=== PATIENT | female | born 1980 | race Caucasian/White ===

== ENCOUNTER 2020-03-14 09:35 | Outpatient (CLI) | payer OTHER, SELFPAY ==
--- NOTE | 2020-03-14 | ECG_ITS ---
Measurements Intervals [place] Rate: 59 P: -4 ID: [id number] QRS: 81 QRSD: 86 T: 75 QT: 414 QTc: 410 Interpretive Statements SINUS BRADYCARDIA BORDERLINE ECG Electronically Signed On 03-14-2020 9:52:13 CDT by David Liang D.O.
--- NOTE | 2020-03-14 | EST_ITS ---
Patient Info Name: Anabella Wright Age: 39 years : 1980 Gender: Female Ht: 69 in Wt: 170 lbs BSA: 1.95 m2 Exam Date: 03/14/2020 9:45 AM Exam Location: [facility] Stress Patient Status: Outpatient Admit Date: 03/14/2020 Staff Ordering Physician: Izabella, Karen MIJARES Attending Provider: PHYSICIAN NOT ON STAFF, NONSTAFF Exercise Technologist: Sparkle Harris RDCS Exam Type: CA stress test treadmill Study Info Indications R07.9 - Chest pain, unspecified A treadmill exercise stress test was performed. Summary 1. Exercise capacity very good at >10 METS. 2. No diagnostic ST segment response to stress. 3. Patient did develop sharp left-sided pain that worsened with inspiration that stopped at 4 minutes in recovery. No associated symptoms. Protocol: [facility]ata Stress ECG Details Stage: REST Duration (min): 10 min : 12 sec Speed (mph): 0.0 Grade (%): 0 HR (bpm): 60 SBP (mmHg): 126 DBP (mmHg): 72 METS: --- Stage: REST Duration (min): 21 min : 15 sec Speed (mph): 0.0 Grade (%): 0 HR (bpm): 69 SBP (mmHg): 126 DBP (mmHg): 72 METS: --- Stage: STAGE 1 Duration (min): 1 min : 0 sec Speed (mph): 1.7 Grade (%): 10 HR (bpm): 81 SBP (mmHg): 126 DBP (mmHg): 72 METS: --- Stage: STAGE 1 Duration (min): 2 min : 0 sec Speed (mph): 1.7 Grade (%): 10 HR (bpm): 89 SBP (mmHg): 126 DBP (mmHg): 72 METS: --- Stage: STAGE 1 Duration (min): 3 min : 0 sec Speed (mph): 1.7 Grade (%): 10 HR (bpm): 86 SBP (mmHg): 142 DBP (mmHg): 63 METS: --- Stage: STAGE 2 Duration (min): 1 min : 0 sec Speed (mph): 2.5 Grade (%): 12 HR (bpm): 92 SBP (mmHg): 142 DBP (mmHg): 63 METS: --- Stage: STAGE 2 Duration (min): 2 min : 0 sec Speed (mph): 2.5 Grade (%): 12 HR (bpm): 99 SBP (mmHg): 151 DBP (mmHg): 65 METS: --- Stage: STAGE 2 Duration (min): 3 min : 0 sec Speed (mph): 2.5 Grade (%): 12 HR (bpm): 103 SBP (mmHg): 151 DBP (mmHg): 65 METS: --- Stage: STAGE 3 Duration (min): 1 min : 0 sec Speed (mph): 3.4 Grade (%): 14 HR (bpm): 117 SBP (mmHg): 144 DBP (mmHg): 68 METS: --- Stage: STAGE 3 Duration (min): 2 min : 0 sec Speed (mph): 3.4 Grade (%): 14 HR (bpm): 134 SBP (mmHg): 144 DBP (mmHg): 68 METS: --- Stage: STAGE 3 Duration (min): 3 min : 0 sec Speed (mph): 3.4 Grade (%): 14 HR (bpm): --- SBP (mmHg): 163 DBP (mmHg): 67 METS: --- Stage: STAGE 4 Duration (min): 1 min : 0 sec Speed (mph): 4.2 Grade (%): 16 HR (bpm): 155 SBP (mmHg): 163 DBP (mmHg): 67 METS: --- Stage: STAGE 4 Duration (min): 1 min : 32 sec Speed (mph): 4.2 Grade (%): 16 HR (bpm): 159 SBP (mmHg): 170 DBP (mmHg): 76 METS: ---
== END 2020-03-14 09:36 | disposition home or self-care (01) ==
LOC: ANHCARD 09:36
PROVIDERS: Visit Provider Physician Assistant
DX: R07.9 Chest pain, unspecified (principal)
CPT/HCPCS: 93005; 93017

== ENCOUNTER 2020-07-05 13:21 | Emergency (ER) | payer OTHER, SELFPAY ==
[2020-07-05] VITALS (25 sets, daily range): BP systolic 104–130; BP diastolic 63–89; PULSE 69; RESP 24; TEMP 36.9; O2SAT 83–100
--- NOTE | ~2020-07-05 | CT_ITS ---
EXAMINATION: CT abdomen pelvis w con EXAM DATE: 07/05/2020 15:10 INDICATION: Right upper quadrant pain. TECHNIQUE: Spiral CT of the abdomen and pelvis was performed following intravenous injection of 100 m L Omnipaque 350. Axial, coronal and sagittal images were reviewed. The dose-length product (DLP) fo r this examination was 409.96 mGy-cm. The exposure was tailored according to patient size (auto mA e xposure control), and iterative reconstruction (ASIR) was used as additional dose reduction technique . Comparison is made to prior examination from 03/01/2008. FINDINGS: The liver, spleen, adrenal glands and pancreas are unremarkable. There are cholecystectomy clips. Portal and splenic veins are patent. Kidneys enhance symmetrically. There is no hydronephr osis. Uterus is retroverted. There is fundal hypoechoic region which could be fluid pocket measurin g 1 x 2 cm. There is right-sided hydrosalpinx, mildly dilated fluid-filled fallopian tube. The bladd er is unremarkable. There is no retroperitoneal or pelvic lymphadenopathy. The appendix is normal. The stomach and small bowel are unremarkable. There is expected amount of c olonic stool. No free intraperitoneal gas. The heart is normal in size. There are no pericardial or pleural effusions. The lung bases are unremarkable. There are no osteoblastic or osteolytic les ions identified. Mild lumbar dextroscoliosis. IMPRESSION: Right hydrosalpinx and possible small endometrial canal fluid pocket. Can't exclude pelvi c inflammatory disease. Consider sonogram if indicated clinically. Reviewed, dictated and finalized at location B. WINDER IMPRESSION: Right hydrosalpinx and possible small endometrial canal fluid pocke t. Can't exclude pelvic inflammatory disease. Consider sonogram if indicated cl inically.
--- NOTE | ~2020-07-05 | US_ITS ---
EXAMINATION: US pelvic complete w TV DATE: 07/05/2020 17:17 INDICATION: Hydrosalpinx seen on CT examination. Comparison:CT dated 07/05/2020 TECHNIQUE: Multiple transabdominal and endovaginal sonographic images of the pelvis performed. FINDINGS: The uterus measures 8.7 x 5.6 x 4.5 cm. There is fluid in the endometrium. The endometrial complex measures 16 mm. The right ovary is surgically absent. No right adnexal masses or fluid collections to correspond to t he tubular structure seen on CT. Per clinical history the patient's right ovary and fallopian tube ar e surgically absent. There is a complex left adnexal mass measuring up to 3.5 cm, possibly hemorrhagi c ovarian cyst. There is no free fluid in the pelvis. There are no abnormal masses seen on either si de. IMPRESSION: 1. Thickened endometrium measuring 16 mm with associated complex fluid in the endometrium, nonspecifi c. 2: Complicated cystic left adnexal mass measuring up to 3.5 cm, possibly hemorrhagic cyst. 3: No right adnexal masses are identified to correspond to the CT findings. Reviewed, dictated and finalized at location A. OR PHYSICIAN IMPRESSION: 1. Thickened endometrium measuring 16 mm with associated complex fluid in the e ndometrium, nonspecific. 2: Complicated cystic left adnexal mass measuring up to 3.5 cm, possibly hemorr hagic cyst. 3: No right adnexal masses are identified to correspond to the CT findings.
--- NOTE | 2020-07-05 13:40 | ED.ABDPAIN ---
HPI - Abdominal Pain General Chief Complaint: Abdominal Pain Stated Complaint: abd pain from express care Time Seen by Provider: 07/05/20 13:39 Source: patient Mode of arrival: ambulatory Limitations: no limitations History of Present Illness HPI narrative: 39 years old white female presents with sudden onset of right lower quadrant pain radiating to right flank area started 2 to 3 hours prior to arrival to the emergency room associated with nausea and vomiting. Patient denying having similar symptoms, fever, chills, chest pain, shortness of breath or headache. History of uterine ablation and excision of the fallopian tubes bilaterally. Related Data Allergies Allergy/AdvReac Type Severity Reaction Status Date / Time No Known Allergies Allergy Verified 06/02/17 10:29 Review of Systems Review of Systems: Narrative: CONSTITUTIONAL: Denies fever, chills, or sweats. EYES: Denies visual changes, redness, or discharge. ENT: Denies rhinorrhea, congestion, sore throat, or otalgia. CARDIOVASCULAR: Denies chest pain, palpitations, or edema. RESPIRATORY: Denies cough or dyspnea. GASTROINTESTINAL: Denies abdominal pain, nausea, vomiting, or diarrhea. GENITOURINARY: Denies dysuria or hematuria. SKIN: Denies rash or itching. MUSCULOSKELETAL: Denies back pain, joint pain, or myalgia. NEUROLOGIC: Denies headache, numbness, or weakness. PSYCHIATRIC: Denies anxiety or depression. [facility] Family History Family History (Updated 12/10/18 @ 14:08 by DOCTOR UNKNOWN) Mother Patient's mother is in good health Father Patient's father is in good health Social History Social History Smoking status: Heavy tobacco smoker Alcohol intake: current Exam Narrative: Exam Narrative: General appearance: Well-developed, well-nourished Skin: Normal color Head: Normocephalic, nontraumatic Chest and respiratory: Airway patent, no respiratory distress, no accessory muscle use Heart: Regular rate/rhythm Abdomen: Soft, severe tenderness right lower quadrant and right flank, no organomegaly, quiet bowel sounds Vascular: Normal peripheral pulses, normal capillary refill. Musculoskeletal: Normal range of motion, nontender back Neurologic: Alert and oriented ?3, FOLDER INSPECTOR is normal as tested, no gross motor deficit Course Course Emergency Course: Improving Vital Signs Vital signs: Vital Signs Temperature 36.9 C 07/05/20 13:29 Pulse Rate 69 07/05/20 13:29 Respiratory Rate 24 H 07/05/20 13:29 Blood Pressure 118/63 07/05/20 13:29 Pulse Oximetry 100 07/05/20 13:29 Temperature 36.9 C 07/05/20 13:29 Pulse Rate 69 07/05/20 13:29 Respiratory Rate 24 H 07/05/20 13:29 Blood Pressure 127/76 07/05/20 14:31 Pulse Oximetry 97 07/05/20 16:00 MDM - Abdominal Pain MDM Narrative Medical decision making narrative: Patient presents with sudden episodes of right lower quadrant pain Ruptured ovarian cyst, ovarian torsion, kidney stone are my concern. Labs, CT abdomen pelvis with IV contrast, IV fluids, IV morphine and Zofran ordered Differential Diagnosis Differential diagnosis: Likely abdominal pain, acute appendicitis, calculus of kidney, constipation and diverticulitis Lab Data Result diagrams: 07/05/20 13:44 07/05/20 13:44 Labs: Lab Results 07/05/20 07/05/20 07/05/20 Range/Units 13:44 13:44 14:49 WBC 11.6 H (4.5-10.0) K/mm3 RBC 4.35 (4.2-5.4) M/mm3 Hgb 13.3 (12.0-15.0) g/dL Hct 38.4 (37.0-47.0) % MCV 88.3 (80-100) fl MCH 30.6 (26-34) pg MCHC 34.6 (32-36) g/dl RDW 12.4 (11.5-14.5) % Plt Count 337 (150-375) k/mm3 MPV 9.4 (7.4-10.4) fl Immature Gran % (Auto) 0.3
[2020-07-05 13:50] LABS: Basophils Absolute Auto 0.1 K/mm3 (0.0-0.1); Basophils Percent Auto 0.7 % (0.2-1.2); Eosinophils Absolute Auto 0.6 K/mm3 (0-0.3); Eosinophils Percent Auto 4.9 % (0-4.4); Hematocrit 38.4 % (37.0-47.0); Hemoglobin 13.3 g/dL (12.0-15.0); Immature Granulocyte Absolute 0.03 K/mm3 (0.00-0.031); Immature Granulocyte Percent A 0.3 % (0-0.5); Lymphocytes Absolute Auto 2.68 K/mm3 (0.9-3.2); Lymphocytes Percent Auto 23.2 % (18.3-44.2); Mean Corpuscular HGB Conc 34.6 g/dl (32-36); Mean Corpuscular Hemoglobin 30.6 pg (26-34); Mean Corpuscular Volume 88.3 fl (80-100); Mean Platelet Volume 9.4 fl (7.4-10.4); Monocytes Absolute Auto 0.9 K/mm3 (0.1-0.6); Neutrophils Absolute Auto 7.3 K/mm3 (1.3-6.7); Neutrophils Percent Auto 62.9 % (45.5-73.1); Platelet Count Result 337 k/mm3 (150-375); Red Blood Count 4.35 M/mm3 (4.2-5.4); Red Cell Distribution Width 12.4 % (11.5-14.5); White Blood Count 11.6 K/mm3 (4.5-10.0)
[2020-07-05] MEDS: MORPHINE SULFATE (*CRX) 4 MG/ML INJ IV PUSH (13:56)
[2020-07-05] MEDS: ONDANSETRON INJ 4 MG/2 ML VIAL IV PUSH (13:56)
[2020-07-05] MEDS: SODIUM CHLORIDE 0.9% IV 1,000 ML 999 ML IV CONT (13:58)
[2020-07-05 14:05] LABS: Alanine Aminotransferase 19 U/L (4-35); Albumin Level 4.6 g/dL (3.5-5.1); Alkaline Phosphatase 58 U/L (38-126); Anion Gap 10 mmol/L (8-16); Aspartate Amino Transferase 27 U/L (14-36); Bilirubin,Total 0.4 mg/dL (0.2-1.3); Blood Urea Nitrogen 15 mg/dL (7-17); Calcium 9.4 mg/dL (8.4-10.2); Carbon Dioxide 17 mmol/L (22-30); Chloride 111 mmol/L (98-107); Estimated CRCL calculation 112 ml/min; Estimated Glomerular Filt Rate > 60; Glucose 98 mg/dL (65-105); Lipase 56 U/L (23-300); Potassium 3.9 mmol/L (3.4-5.0); Sodium 138 mmol/L (137-145)
--- NOTE | 2020-07-05 14:27 | PC.NURSE ---
provider in room. urine preg cancelled. patient is s/p hysterectomy.
[2020-07-05 15:08] LABS: Add Urine Microscopic? YES; Appearance Urine Cloudy (Clear); Bacteria Urine 1+ /hpf; Bilirubin Urine Negative (Negative); Blood Urine Negative (Negative); Color Urine Yellow (Yellow); Glucose Urine UA Negative (Negative); Ketones Urine Trace mg/dL (Negative); Leukocyte Esterase Ur Negative LEU/UL (Negative); Mucus Urine Rare /lpf; Nitrate Urine Negative (Negative); Protein Urine Negative (Negative); RBC Urine 0-2 /hpf (0-2); Specific Grav Ur 1.013 (1.001-1.035); Squamous Epithelial Cell Urine Many /hpf (Few); Urobilinogen Urine Negative mg/dL (<2.0); WBC Urine 0-3 /hpf
--- NOTE | 2020-07-05 16:44 | PC.NURSE ---
CT done and resulted. US recommended. order placed. waiting for test to be done. pain is 5/10 per patient.
[2020-07-05] MEDS: KETOROLAC 30 MG/ML VIAL (*BKC) IV PUSH (17:40)
--- NOTE | 2020-07-05 18:20 | PC.NURSE ---
provider in room.
--- NOTE | 2020-07-05 19:05 | PC.NURSE ---
provider to room to discuss surgery's recommendations. patient does not want to be admitted for monitoring and surgical consult. wants to go home. patient signed AMA. no discharge paperwork given. 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
--- NOTE | 2020-07-05 19:07 | PC.NURSE ---
ED provider discussed patient's CT and US results with surgery.
== END 2020-07-05 19:20 | disposition left against medical advice (07) ==
PROVIDERS: Emergency Medicine; Emergency Provider Emergency Medicine
DX: R10.31 Right lower quadrant pain (principal); F17.200 Nicotine dependence, unspecified, uncomplicated
CPT/HCPCS: 36415; 74177; 76830; 76856; 80053; 81001; 81025; 83690; 85025; 96361; 96374; 96375; 99284; J1885; J2270; J2405; J7030; Q9967

== ENCOUNTER 2020-11-29 14:11 | Outpatient (CLI) | payer OTHER, SELFPAY ==
--- NOTE | ~2020-11-29 | CT_ITS ---
EXAMINATION: CT abdomen pelvis wo con EXAM DATE: 11/29/2020 14:45 INDICATION: Pelvic and perineal pain. TECHNIQUE: Spiral CT of the abdomen and pelvis was performed without contrast. Axial, coronal and s agittal images of the abdomen and pelvis were reviewed. The dose-length product (DLP) for this exami nation was 382.13 mGy-cm. The exposure was tailored according to patient size (auto mA exposure cont rol), and iterative reconstruction (ASIR) was used as additional dose reduction technique. Comparison is made to prior examination from 07/05/2020. FINDINGS: The liver, spleen, adrenal glands and pancreas are unremarkable. There are cholecystectom y clips. There is no nephrolithiasis or hydronephrosis. The uterus is unremarkable. Peritoneum unr emarkable. The bladder is unremarkable. There is no retroperitoneal or pelvic lymphadenopathy. The appendix is normal. The stomach and small bowel are unremarkable. There is expected amount of c olonic stool. No free intraperitoneal gas. The heart is normal in size. There are no pericardial or pleural effusions. Several left lower lobe 3 mm nodules unchanged, noncalcified granulomas. The re are no osteoblastic or osteolytic lesions identified. Mild lumbar dextroscoliosis. IMPRESSION: Unremarkable exam. Reviewed, dictated and finalized at location A. IMPRESSION: Unremarkable exam.
== END 2020-11-29 14:12 | disposition home or self-care (01) ==
PROVIDERS: PCP Physician Assistant; Visit Provider Physician Assistant
DX: R10.2 Pelvic and perineal pain (principal)
CPT/HCPCS: 74176

== ENCOUNTER 2020-12-02 10:33 | Outpatient (CLI) | payer OTHER, SELFPAY ==
--- NOTE | ~2020-12-02 | XR_ITS ---
EXAMINATION: XR lumbar spine 2-3V DATE: 12/02/2020 10:51 INDICATION: Low back pain with sciatica TECHNIQUE: Anteroposterior and lateral views of the lumbar spine, and cone-down lateral view of the l umbosacral junction were obtained. COMPARISON: 06/14/2016 FINDINGS: The vertebral body heights, alignment, and intervertebral disc spaces are normal. There is no fracture. Small degenerative osteophytes project from the anterior endplates of multiple vertebral bodies. Mild facet osteoarthritis is noted in the lower lumbar spine. Cholecystectomy clips are pres ent in the right upper quadrant. IMPRESSION: 1. Mild lumbar spondylosis without acute findings or significant interval change. Reviewed, dictated and finalized at location B. IMPRESSION: 1. Mild lumbar spondylosis without acute findings or significant interval chago michaud
== END 2020-12-02 10:34 | disposition home or self-care (01) ==
LOC: ANHIMG 10:38
PROVIDERS: PCP Physician Assistant; Visit Provider Physician Assistant
DX: M54.41 Lumbago with sciatica, right side (principal); M47.816 Spondylosis without myelopathy or radiculopathy, lumbar region
CPT/HCPCS: 72100

== ENCOUNTER 2020-12-31 13:41 | Emergency (ER) | payer OTHER, SELFPAY ==
[2020-12-31] VITALS (21 sets, daily range): BP systolic 126–145; BP diastolic 74–92; PULSE 60–85; RESP 12–20; TEMP 36.5; O2SAT 94–100
--- NOTE | ~2020-12-31 | US_ITS ---
EXAMINATION: US pelvic complete w TV DATE: 12/31/2020 18:50 INDICATION: Right lower quadrant pain, history of right oophorectomy TECHNIQUE: Multiple transabdominal and endovaginal sonographic images of the pelvis were obtained. COMPARISON: 07/05/2020 FINDINGS: The uterus measures 6.4 x 5.3 x 5.8 cm. The endometrial complex measures 17 mm. The right o vary is not visualized, consistent with history of right oophorectomy. There is a 4.8 x 3.1 cm comple x fluid collection of the right adnexa of unclear etiology. The left ovary measures 2.4 x 1.3 x 1.4 c m. There is normal vascular flow in the left ovary. There is a small amount of free fluid in the pelv is. IMPRESSION: 1. Complex fluid collection of the right adnexa of unclear etiology. In light of the patient's negati ve test, findings correspond ectopic are considered unlikely. Given the history o f right salpingo-oophorectomy, findings could reflect a complex postoperative fluid collection or pos sibly abscess. TRAVELING PLANT OPERATOR evaluation is recommended. Reviewed, dictated and finalized at location A. IMPRESSION: 1. Complex fluid collection of the right adnexa of unclear etiology. In light o f the patient's negative test, findings correspond ectopic are considered unlikely. Given the history of right salpingo-oophorectomy, find ings could reflect a complex postoperative fluid collection or possibly abscess . TRAVELING PLANT OPERATOR evaluation is recommended.
--- NOTE | ~2020-12-31 | CT_ITS ---
EXAMINATION: CT abdomen pelvis w con INDICATION: Right lower quadrant pain TECHNIQUE: Computed tomographic images of the abdomen and pelvis were obtained after the administrati on of 100 cc of Omnipaque 350 intravenous contrast. The dose-length product (DLP) was 366.32 mGy-cm. Automated exposure control and iterative reconstruction technique were employed. COMPARISON: 11/29/2020 FINDINGS: The lung bases are clear. The heart size is normal. There is a small sliding hiatal hernia. The gallbladder is surgically absent. There is mild enlargement of the common bile duct and central intrahepatic ducts which is likely due to post cholecystectomy state. The liver, spleen, pancreas, an d adrenal glands are normal. The kidneys are unremarkable. No pathologically enlarged abdominal or pe lvic lymph nodes are identified. There is no free intraperitoneal gas or evidence of bowel obstructio n. The appendix is normal. There is a moderate amount of fluid in the right adnexa. The endometrial c omplex is upper limits of normal in thickness. IMPRESSION: 1. Fluid in the right adnexa of unclear etiology, possibly ruptured ovarian cyst. Consider further ev aluation with pelvic ultrasound. Reviewed, dictated and finalized at location A. IMPRESSION: 1. Fluid in the right adnexa of unclear etiology, possibly ruptured ovarian cys t. Consider further evaluation with pelvic ultrasound.
[2020-12-31 14:10] LABS: Basophils Absolute Auto 0.1 K/mm3 (0.0-0.1); Basophils Percent Auto 0.5 % (0.2-1.2); Eosinophils Absolute Auto 0.4 K/mm3 (0-0.3); Eosinophils Percent Auto 3.1 % (0-4.4); Hematocrit 41.1 % (37.0-47.0); Hemoglobin 13.7 g/dL (12.0-15.0); Immature Granulocyte Absolute 0.04 K/mm3 (0.00-0.031); Immature Granulocyte Percent A 0.3 % (0-0.5); Lymphocytes Absolute Auto 2.25 K/mm3 (0.9-3.2); Lymphocytes Percent Auto 16.3 % (18.3-44.2); Mean Corpuscular HGB Conc 33.3 g/dl (32-36); Mean Corpuscular Hemoglobin 29.6 pg (26-34); Mean Corpuscular Volume 88.8 fl (80-100); Mean Platelet Volume 9.6 fl (7.4-10.4); Monocytes Absolute Auto 1.4 K/mm3 (0.1-0.6); Monocytes Percent Auto 9.9 % (2.6-8.5); Neutrophils Absolute Auto 9.7 K/mm3 (1.3-6.7); Neutrophils Percent Auto 69.9 % (45.5-73.1); Platelet Count Result 350 k/mm3 (150-375); Red Blood Count 4.63 M/mm3 (4.2-5.4); Red Cell Distribution Width 13.1 % (11.5-14.5); White Blood Count 13.8 K/mm3 (4.5-10.0)
[2020-12-31 14:23] LABS: Add Urine Microscopic? YES; Appearance Urine Clear (Clear); Bilirubin Urine Negative (Negative); Blood Urine Negative (Negative); Color Urine Yellow (Yellow); Glucose Urine UA Negative (Negative); Ketones Urine 1+ mg/dL (Negative); Leukocyte Esterase Ur Negative LEU/UL (Negative); Mucus Urine Rare /lpf; Nitrate Urine Negative (Negative); Protein Urine Negative (Negative); RBC Urine 0-2 /hpf (0-2); Squamous Epithelial Cell Urine Rare /hpf (Few); Urobilinogen Urine Negative mg/dL (<2.0); WBC Urine 0-3 /hpf
[2020-12-31 14:33] LABS: Alanine Aminotransferase 13 U/L (4-35); Albumin Level 4.9 g/dL (3.5-5.1); Alkaline Phosphatase 74 U/L (38-126); Anion Gap 14 mmol/L (8-16); Aspartate Amino Transferase 19 U/L (14-36); Bilirubin,Total 0.9 mg/dL (0.2-1.3); Blood Urea Nitrogen 12 mg/dL (7-17); Calcium 10.2 mg/dL (8.4-10.2); Carbon Dioxide 14 mmol/L (22-30); Chloride 110 mmol/L (98-107); Estimated CRCL calculation 96 ml/min; Estimated Glomerular Filt Rate > 60; Glucose 105 mg/dL (65-110); Lipase 76 U/L (23-300); Potassium 3.8 mmol/L (3.4-5.0); Sodium 138 mmol/L (137-145)
--- NOTE | 2020-12-31 15:34 | PC.NURSE ---
Patient is on floor in triage crying hysterically. This is not ok! Taken to clean room at this time.
[2020-12-31] MEDS: ONDANSETRON INJ 4 MG/2 ML VIAL IV PUSH (16:24)
[2020-12-31] MEDS: HYDROmorphone HCL INJ (*CRX) 1 MG/ML SYR 0.5 MG IV PUSH ×2 (16:24→17:38)
[2020-12-31] MEDS: SODIUM CHLORIDE 0.9% IV 1,000 ML 999 ML IV CONT (16:24)
[2020-12-31 16:25] LABS: Pregnancy On Board Control Positive; Urine Pregnancy Test Negative
--- NOTE | 2020-12-31 16:32 | ED.ABDPAIN ---
HPI - Abdominal Pain General Chief Complaint: Abdominal Pain Stated Complaint: abdominal pain Time Seen by Provider: 12/31/20 15:40 Source: patient Mode of arrival: ambulatory Limitations: no limitations History of Present Illness HPI narrative: Patient dropped off by somebody to the ED complaining of right lower quadrant pain that started 3 days ago, intermittent, no radiation. The pain has been constant with intermittent flareups. Patient denies any nausea, vomiting, diarrhea, constipation, vaginal bleeding or discharge, urinary symptoms. Patient did not get vaccinated yet,, history of cholecystectomy ,fallopian tube excision. Related Data Allergies Allergy/AdvReac Type Severity Reaction Status Date / Time No Known Allergies Allergy Verified 06/02/17 10:29 Review of Systems Review of Systems: CONSTITUTIONAL: Denies fever, chills, or sweats. EYES: Denies visual changes, redness, or discharge. ENT: Denies rhinorrhea, congestion, sore throat, or otalgia. CARDIOVASCULAR: Denies chest pain, palpitations, or edema. RESPIRATORY: Denies cough or dyspnea. GASTROINTESTINAL: Denies abdominal pain, nausea, vomiting, or diarrhea. GENITOURINARY: Denies dysuria or hematuria. SKIN: Denies rash or itching. MUSCULOSKELETAL: Denies back pain, joint pain, or myalgia. NEUROLOGIC: Denies headache, numbness, or weakness. PSYCHIATRIC: Denies anxiety or depression. [facility] Family History Family History Mother Patient's mother is in good health Father Patient's father is in good health Social History Social History Smoking status: Heavy tobacco smoker Alcohol intake: current Gender identity (if verbalized by the patient): Female Exam Narrative: General appearance: Well-developed, well-nourished Skin: Normal color Head: Normocephalic, nontraumatic Eyes: Clear conjunctiva ENT: Oropharynx normal, ears normal, nose normal Neck: Supple, nontender Chest and respiratory: Airway patent, no respiratory distress, no accessory muscle use Heart: Regular rate/rhythm Abdomen: Soft, severe excruciating tenderness at the right lower quadrant no organomegaly, quiet bowel sounds Vascular: Normal peripheral pulses, normal capillary refill. Musculoskeletal: Normal range of motion, nontender back Neurologic: Alert and oriented ?3, CABLE LACER is normal as tested, no gross motor deficit Course Course Emergency Course: Stable Vital Signs Vital signs: Vital Signs Temperature 36.5 C 12/31/20 13:42 Pulse Rate 72 12/31/20 13:42 Respiratory Rate 20 12/31/20 13:42 Blood Pressure 145/80 H 12/31/20 13:42 Pulse Oximetry 100 12/31/20 13:42 Temperature 36.5 C 12/31/20 13:42 Pulse Rate 72 12/31/20 13:42 Respiratory Rate 20 12/31/20 13:42 Blood Pressure 145/80 H 12/31/20 13:42 Pulse Oximetry 100 12/31/20 13:42 MDM - Abdominal Pain MDM Narrative Medical decision making narrative: Patient presents with right lower quadrant pain, Appendicitis, ovarian cyst rupture, torsion or ovarian my concern. Labs, IV fluids, CT abdomen pelvis with IV contrast Differential Diagnosis Differential diagnosis: Likely abdominal pain, acute appendicitis, calculus of kidney, constipation and diverticulitis Lab Data Result diagrams: 12/31/20 13:56 12/31/20 13:56 Labs: Lab Results 12/31/20 12/31/20 12/31/20 Range/Units 13:55 13:56 13:56 WBC 13.8 H (4.5-10.0) K/mm3 RBC 4.63 (4.2-5.4) M/mm3 Hgb 13.7 (12.0-15.0) g/dL Hct 41.1 (37.0-47.0) % MCV 88.8 (80-100) fl MCH 29.6 (26-34) pg MCHC 33.3 (32-36) g/dl
[2020-12-31] MEDS: HYDROcodone/acetaminophen (*CRX) 5-325 MG TABLET 1 TAB PO (20:58)
[2020-12-31] MEDS: DOXYCYCLINE HYCLATE 50 MG CAPSULE PO (20:58)
[2020-12-31] MEDS: cefTRIAXone 1 GM VIAL 0.5 GM IM (20:59)
[2020-12-31] MEDS: LIDOCAINE HCL 2% LOCAL INJ 20 ML VIAL (21:04)
== END 2020-12-31 21:44 | disposition home or self-care (01) ==
PROVIDERS: Emergency Medicine; Emergency Provider Emergency Medicine; PCP Physician Assistant
DX: N73.9 Female pelvic inflammatory disease, unspecified (principal); F17.200 Nicotine dependence, unspecified, uncomplicated
CPT/HCPCS: 36415; 74177; 76830; 76856; 80053; 81001; 81025; 83690; 85025; 87070; 87491; 87591; 87808; 96361; 96372; 96374; 96375; 96376; 99284; A9270; J0696; J1170; J2405; J7030; Q9967

== ENCOUNTER 2021-08-31 11:20 | Emergency (ER) | payer OTHER, SELFPAY ==
--- NOTE | ~2021-08-31 | XR_ITS ---
EXAMINATION: XR elbow RT min 3V EXAM DATE: 08/31/2021 11:48 INDICATION: FALL in loose gravel this A.M.; pain post Rt elbow . TECHNIQUE: Right elbow frontal, lateral with flexion, and oblique projections obtained and reviewed. There is no prior study for comparison. FINDINGS: Right elbow anterior humeral line intact. There are no acute fractures or dislocations ethan ntified. There is no subcutaneous gas. The soft tissue is unremarkable. There are no radiopaque f oreign bodies. IMPRESSION: No acute osseous findings. Reviewed, dictated and finalized at location B. IMPRESSION: No acute osseous findings.
[2021-08-31 11:34] VITALS: BP 121/72; PULSE 76; RESP 16; TEMP 36.9; O2SAT 100
--- NOTE | 2021-08-31 11:52 | ED.UPPEXIN ---
HPI - Extremity Injury (Upper) General Chief Complaint: Extremity Injury, Upper Stated Complaint: R ARM INJURY Time Seen by Provider: 08/31/21 11:50 Source: patient, family, RN notes reviewed and old records reviewed Mode of arrival: ambulatory Limitations: no limitations History of Present Illness HPI narrative: 41year old female accompanied by father presents to express care with complaints of falling in loose gravel this morning at her home and injuring her right elbow. Patient reports pain is throbbing to her right elbow with increase pain with any movement of elbow region especially with extension of right arm. Patient has small abrasion to her right elbow region with no acute bleeding noted. Leanne reports that she has applied ice to her elbow but has not taken any OTC pain medication. MD complaint: injury to: right Onset (ago): hour(s) (within past 2 hours) Other injuries: none Handedness: right Place: home Severity: moderate Severity scale (1-10): 7 Relieving factors: none Exacerbating factors: movement of extremity Context: fall Associated symptoms: denies other symptoms Treatments prior to arrival: cold therapy Related Data Allergies Allergy/AdvReac Type Severity Reaction Status Date / Time No Known Allergies Allergy Verified 12/31/20 20:08 Review of Systems Review of Systems: CONSTITUTIONAL: Denies fever, chills, or sweats. EYES: Denies visual changes, redness, or discharge. ENT: Denies rhinorrhea, congestion, sore throat, or otalgia. CARDIOVASCULAR: Denies chest pain, palpitations, or edema. RESPIRATORY: Denies cough or dyspnea. GASTROINTESTINAL: Denies abdominal pain, nausea, vomiting, or diarrhea. GENITOURINARY: Denies dysuria or hematuria. SKIN: Denies rash or itching. MUSCULOSKELETAL: Denies back pain, joint pain, or myalgia. NEUROLOGIC: Denies headache, numbness, or weakness. PSYCHIATRIC: Denies anxiety or depression. All systems reviewed & are unremarkable except as noted in HPI and below PMFSH Past Medical History Medical History (Updated 08/31/21 @ 12:16 by Hillary Mohan NP) Anxiety and depression Kidney stones Ruptured tubal of right fallopian tube Surgical History Surgical History (Updated 08/31/21 @ 12:06 by Hillary Mohan NP) H/O tubal ligation Hx of cholecystectomy Family History Family History (Updated 08/31/21 @ 12:18 by Hillary Mohan NP) Mother Hypertension Father Patient's father is in good health Grandparent Acute myocardial infarction Cerebrovascular accident Cancer Social History Social History (Updated 08/31/21 @ 12:16 by Hillary Mohan NP) Smoking status: Former smoker Additional smoking assessment comments: states that she has quit smoking cigarettes Alcohol intake: former Substance use: current Substance use type: marijuana Living arrangements: with family Gender identity (if verbalized by the patient): Female Comments At time of signature, agree with nursing past medical, surgical, social and family history. There is no relevant family history pertinent to the presenting complaint Exam Narrative: GENERAL: Well-appearing, well-nourished, and in no acute distress. HEAD: Normocephalic, atraumatic. EYES: PERRLA and EOMI. ENT: Nares clear, no rhinorrhea or epistaxis. Mucous membranes moist.TM's normal throat pink with no lesions or exudates no tonsil swelling NECK: Supple. no lymphadenopathy CHEST: Clear to auscultation. No respiratory distress. SAO2 100% on room air HEART: Regular rate and rhythm. No murmur heard. Normal peripheral pulses. ABDOMEN: Soft, nontender, nondistended, normal active bowel sounds. EXTREMITIES: Normal range of motion. No edema.Painful right elbow related to fall this morning with small abrasion to proximal forearm with no acute drainage present. pain increases with extension of right arm, Patient is able to pronate and supinate her right hand and bend elbow fully but with discomfort. No acute swel
== END 2021-08-31 12:18 | disposition home or self-care (01) ==
PROVIDERS: Emergency Provider Registered Nurse; PCP Physician Assistant
DX: S50.01XA Contusion of right elbow, initial encounter (principal); W19.XXXA Unspecified fall, initial encounter
CPT/HCPCS: 73080; 99213; G0463

== ENCOUNTER 2022-05-19 08:12 | Emergency (ER) | payer OTHER, SELFPAY ==
--- NOTE | 2022-05-19 08:17 | ED.FEMALEGU ---
HPI - Female Genitourinary General Chief complaint: Abdominal Pain Stated complaint: R SIDE PAIN/BURNING Time Seen by Provider: 05/19/22 08:17 Source: patient and RN notes reviewed History of Present Illness HPI Narrative: Patient is a 41-year-old female who presents to urgent care with complaints of right lower abdominal pain. Patient states that she was doing weighted crunches at the gym yesterday and felt something pop in her right lower abdomen. Patient states that she has had extensive history with uterine of lesions, surgery on her fallopian tubes, and the only solution to her problems is to have a total hysterectomy. Patient states she has not had a menstrual cycle in many years due to all of her extensive history is. Patient states that yesterday after the incident she was passing large clots. Patient states that urination relieves the pressure and pain. Patient states that she was unable to sleep last night due to the pain. Denies any nausea or vomiting. No other acute complaints. No acute distress noted. Patient aware of the plan of care. Some parts of this dictation were generated by voice recognition software and may contain typographical and/or grammatical inaccuracies. Related Data Home Medications Medication Instructions Recorded Confirmed No Home Medications 08/31/21 08/31/21 Allergies Allergy/AdvReac Type Severity Reaction Status Date / Time No Known Allergies Allergy Verified 05/19/22 08:17 Review of Systems Review of Systems: CONSTITUTIONAL: Denies fever, chills, or sweats. EYES: Denies visual changes, redness, or discharge. ENT: Denies rhinorrhea, congestion, sore throat, or otalgia. CARDIOVASCULAR: Denies chest pain, palpitations, or edema. RESPIRATORY: Denies cough or dyspnea. GASTROINTESTINAL: Reports right lower abdominal pain GENITOURINARY: Denies dysuria or hematuria. SKIN: Denies rash or itching. MUSCULOSKELETAL: Denies back pain, joint pain, or myalgia. NEUROLOGIC: Denies headache, numbness, or weakness. All other systems reviewed are negative, except as documented in HPI. [facility] Past Medical History Medical History (Updated 05/19/22 @ 08:43 by LEONA Hollis) Anxiety and depression Kidney stones Ruptured tubal of right fallopian tube Surgical History Surgical History (Updated 08/31/21 @ 12:06 by Hillary Mohan NP) H/O tubal ligation Hx of cholecystectomy Family History Family History (Updated 08/31/21 @ 12:18 by Hillary Mohan NP) Mother Hypertension Father Patient's father is in good health Grandparent Acute myocardial infarction Cerebrovascular accident Cancer Social History Social History (Updated 08/31/21 @ 12:16 by Hillary Mohan NP) Smoking status: Former smoker Additional smoking assessment comments: states that she has quit smoking cigarettes Alcohol intake: former Substance use: current Substance use type: marijuana Gender identity (if verbalized by the patient): Female Comments At the time of my signature, I reviewed and agree with the nursing past medical, surgical, social, and family history. There is no relevant family history pertinent to the patient complaint. Exam Narrative: GENERAL: This is a well-nourished, well-developed patient, in no apparent distress. HEAD: normocephalic, atraumatic. EYES: PERRL. Sclera clear/white. Vision is grossly intact. EARS: External ears normal NOSE: External nose normal with no obvious nasal discharge, nares without redness, no rhinorrhea. THROAT: Mucous membranes moist NECK: Neck supple CARDIOVASCULAR: Regular rate and rhythm without murmurs, gallops, or rubs. RESPIRATORY: Clear to auscultation. Breath sounds equal bilaterally. No wheezes, rales, or rhonchi. GASTROINTESTINAL: Abdomen soft, moderate to severe right lower abdominal tenderness with mild distension Bowel sounds are active. SKIN: warm, intact with no suspicious lesions or rash, good texture and t
[2022-05-19 08:22] VITALS: BP 128/88; PULSE 69; RESP 16; TEMP 36.8; O2SAT 100
== END 2022-05-19 08:47 | disposition short-term general hospital (02) ==
PROVIDERS: Emergency Provider Nurse Practitioner Family; PCP Physician Assistant
DX: R10.31 Right lower quadrant pain (principal); Z87.891 Personal history of nicotine dependence
CPT/HCPCS: 81003; 99212; G0463

== ENCOUNTER 2022-05-19 08:54 | Emergency (ER) | payer OTHER, SELFPAY ==
--- NOTE | ~2022-05-19 | CT_ITS ---
EXAMINATION: CT abdomen pelvis w con INDICATION: Severe right lower quadrant pain TECHNIQUE: Computed tomographic images of the abdomen and pelvis were obtained after the administrati on of 100 cc of Omnipaque 350 intravenous contrast. The dose-length product (DLP) was 332.68 mGy-cm. Automated exposure control and iterative reconstruction technique were employed. COMPARISON: 12/31/2020 FINDINGS: The lung bases are clear. The heart size is normal. The gallbladder is surgically absent. T here is mild enlargement of the common bile duct and central intrahepatic ducts which is likely due t o post cholecystectomy state. The liver, spleen, pancreas, and adrenal glands are normal. The kidneys are unremarkable. No pathologically enlarged abdominal or pelvic lymph nodes are identified. There i s no free intraperitoneal gas or evidence of bowel obstruction. The appendix is normal. There is a sm all volume of fluid in the cul-de-sac. IMPRESSION: 1. Small volume of fluid in the cul-de-sac which may be physiologic. No CT correlate for right lower quadrant pain. Reviewed, dictated and finalized at location A. AM LEVELER IMPRESSION: 1. Small volume of fluid in the cul-de-sac which may be physiologic. No CT robin elate for right lower quadrant pain.
--- NOTE | ~2022-05-19 | US_ITS ---
EXAMINATION: US pelvic complete w TV DATE: 05/19/2022 13:10 INDICATION: Right lower quadrant pain TECHNIQUE: Multiple transabdominal and endovaginal sonographic images of the pelvis were obtained. COMPARISON: 12/31/[address] from today FINDINGS: The uterus measures 9.0 x 6.2 x 5.9 cm. The endometrial complex measures 12 mm. There is a chronic small endometrial fluid collection. The right ovary measures 2.1 x 1.3 x 1.5 cm. And previous ly described complex fluid collection of the right adnexa has largely resolved. There is a small amou nt of residual complex fluid. The left ovary measures 2.8 x 2.2 x 2.3 cm and contains a 2.8 cm cyst w ith septations which is nonsignificantly changed. There is normal vascular flow in the ovaries. There is no free fluid in the pelvis. IMPRESSION: 1. No sonographic correlate for the patient's symptoms. Reviewed, dictated and finalized at location A. L MAKER
[2022-05-19 08:55] VITALS: BP 136/95; PULSE 84; RESP 16; TEMP 36.9; O2SAT 100
--- NOTE | 2022-05-19 10:15 | ED.ABDPAIN ---
HPI - Abdominal Pain General Chief Complaint: Abdominal Pain Stated Complaint: pelvic pain right side Time Seen by Provider: 05/19/22 09:55 History of Present Illness HPI narrative: 41-year-old female with a extensive history of pelvic pain for which she follows with an [facility], previously attributed to PID, here for evaluation of right lower quadrant/right pelvic pain for the past day. Patient states the pain came on while she was in a workout. She describes the pain as excruciating and felt a warm sensation in the rest of her pelvis after the pain developed in her right lower quadrant. The pain eased up without intervention but did come back today. It is associated with nausea but no vomiting. No fevers, chills, constipation, diarrhea. Her [facility] recommended she have a hysterectomy for her chronic pain but she has not scheduled this yet. Related Data Home Medications Medication Instructions Recorded Confirmed No Home Medications 08/31/21 05/19/22 Allergies Allergy/AdvReac Type Severity Reaction Status Date / Time No Known Allergies Allergy Verified 05/19/22 08:54 Review of Systems Review of Systems: Gen.: Denies fevers or chills Eyes: Denies eye pain or visual change ENT: Denies congestion Respiratory: Denies shortness of breath or cough CV: Denies chest pain or palpitations GI: Reports right-sided abdominal pain and nausea. denies burning, urgency, frequency or hematuria Musculoskeletal: Denies back pain or muscle pain Neuro: Denies numbness, tingling, weakness or focal weakness Skin: Denies rash Except as documented, all other systems reviewed and negative [facility] Past Medical History Medical History Anxiety and depression Kidney stones Ruptured tubal of right fallopian tube Surgical History Surgical History H/O tubal ligation Hx of cholecystectomy Family History Family History (Updated 08/31/21 @ 12:18 by Hillary Mohan NP) Mother Hypertension Father Patient's father is in good health Grandparent Acute myocardial infarction Cerebrovascular accident Cancer Social History Social History (Updated 08/31/21 @ 12:16 by Hillary Mohan NP) Smoking status: Former smoker Additional smoking assessment comments: states that she has quit smoking cigarettes Alcohol intake: former Substance use: current Substance use type: marijuana Gender identity (if verbalized by the patient): Female Exam Narrative: APPEARANCE: Well appearing, no pain in distress, well-nourished. Head: Normocephalic and atraumatic. EYES: PERRLA/EOMI, conjunctivae clear NOSE: No nasal drainage EARS: External ear normal in appearance THROAT: Oropharynx is clear. Mucous membranes are moist. NECK: Supple. No adenopathy, no masses. RESPIRATORY: Airway patent, respirations nonlabored. Clear to auscultation bilaterally, no rales, rhonchi, wheezing. CARDIOVASCULAR: Regular rate and rhythm without murmurs, rubs, or gallops. ABDOMINAL: Normoactive bowel sounds. Soft, nontender, nondistended. No rebound tenderness or guarding. MUSCULOSKELETAL: Extremities are warm and well-perfused. Moves all extremities well. No edema. NEURO: Normal speech. No focal neurologic deficits. SKIN: Skin is warm and dry. No rashes. PSYCHIATRIC: Normal affect/mood.. Course Vital Signs Vital signs: Vital Signs Temperature 98.5 F 05/19/22 08:55 Pulse Rate 84 05/19/22 08:55 Respiratory Rate 16 05/19/22 08:55 Blood Pressure 136/95 H 05/19/22 08:55 Pulse Oximetry 100 05/19/22 08:55 Oxygen Delivery Room Air 05/19/22 08:55 Temperature 98.5 F 05/19/22 08:55 Pulse Rate 88 05/19/22 13:57 Respiratory Rate 16 05/19/22 13:57 Blood Pressure 134/86 05/19/22 13:57 Pulse Oximetry 98 05/19/22 13:57 Oxygen Delivery Room Air 05/19/22 08:55 MDM - Abdominal P
[2022-05-19] MEDS: MORPHINE SULFATE (*CRX) 4 MG/ML INJ IV PUSH (10:17)
[2022-05-19] MEDS: ONDANSETRON INJ 4 MG/2 ML VIAL IV PUSH (10:17)
[2022-05-19 10:24] VITALS: BP 147/82; PULSE 57; RESP 18; O2SAT 100
[2022-05-19 10:24] LABS: Alanine Aminotransferase 18 U/L (6-35); Albumin Level 4.7 g/dL (3.5-5.1); Alkaline Phosphatase 65 U/L (38-126); Anion Gap 5 mmol/L (8-16); Aspartate Amino Transferase 24 U/L (14-36); Bilirubin,Total 0.3 mg/dL (0.2-1.3); Blood Urea Nitrogen 13 mg/dL (7-17); Calcium 8.9 mg/dL (8.4-10.2); Carbon Dioxide 24 mmol/L (22-30); Chloride 107 mmol/L (98-107); Estimated CRCL calculation 110 ml/min; Estimated Glomerular Filt Rate > 60; Glucose 94 mg/dL (65-110); Lactic Acid Reflex 0.9 mmol/L (0.7-2.0); Lipase 55 U/L (23-300); Potassium 3.8 mmol/L (3.4-5.0); Sodium 136 mmol/L (137-145)
[2022-05-19 10:27] LABS: Basophils Absolute Auto 0.1 K/mm3 (0.0-0.1); Basophils Percent Auto 0.9 % (0.2-1.2); Eosinophils Absolute Auto 0.8 K/mm3 (0-0.3); Eosinophils Percent Auto 7.9 % (0-4.4); Hematocrit 39.2 % (37.0-47.0); Hemoglobin 13.3 g/dL (12.0-15.0); Immature Granulocyte Absolute 0.02 K/mm3 (0.00-0.031); Immature Granulocyte Percent A 0.2 % (0-0.5); Lymphocytes Absolute Auto 2.16 K/mm3 (0.9-3.2); Lymphocytes Percent Auto 22.7 % (18.3-44.2); Mean Corpuscular HGB Conc 33.9 g/dl (32-36); Mean Corpuscular Hemoglobin 29.9 pg (26-34); Mean Corpuscular Volume 88.1 fl (80-100); Mean Platelet Volume 9.3 fl (7.4-10.4); Monocytes Absolute Auto 0.7 K/mm3 (0.1-0.6); Monocytes Percent Auto 7.3 % (2.6-8.5); Neutrophils Absolute Auto 5.8 K/mm3 (1.3-6.7); Platelet Count Result 405 k/mm3 (150-375); Red Blood Count 4.45 M/mm3 (4.2-5.4); Red Cell Distribution Width 12.5 % (11.5-14.5); White Blood Count 9.5 K/mm3 (4.5-10.0)
--- NOTE | 2022-05-19 10:43 | PC.NURSE ---
Pt taken to CT scan
[2022-05-19 10:48] LABS: Add Urine Microscopic? YES; Appearance Urine Clear (Clear); Bilirubin Urine Negative (Negative); Blood Urine Trace-Intact (Negative); Color Urine Light Yellow (Yellow); Glucose Urine UA Negative (Negative); Ketones Urine Negative (Negative); Leukocyte Esterase Ur Negative LEU/UL (Negative); Nitrate Urine Negative (Negative); Protein Urine Negative (Negative); Urobilinogen Urine 0.2 mg/dL (<2.0)
[2022-05-19 11:12] LABS: Bacteria Urine Trace /hpf; Mucus Urine Rare /lpf; RBC Urine 0-2 /hpf (0-2); Squamous Epithelial Cell Urine Many /hpf (Few); WBC Urine 0-3 /hpf
[2022-05-19 12:18] VITALS: BP 139/84; PULSE 72; RESP 16; O2SAT 98
[2022-05-19] MEDS: MORPHINE SULFATE (*CRX) 2 MG/ML INJ IV PUSH (13:18)
[2022-05-19 13:57] VITALS: BP 134/86; PULSE 88; RESP 16; O2SAT 98
== END 2022-05-19 13:58 | disposition home or self-care (01) ==
PROVIDERS: Emergency Medicine; Emergency Provider Physician Assistant; PCP Physician Assistant
DX: R10.2 Pelvic and perineal pain (principal); G89.29 Other chronic pain; Z87.442 Personal history of urinary calculi; Z87.891 Personal history of nicotine dependence
CPT/HCPCS: 36415; 74177; 76830; 76856; 80053; 81001; 81003; 81025; 83605; 83690; 85025; 96374; 96375; 96376; 99284; J2270; J2405; Q9967

== ENCOUNTER 2023-09-19 10:40 | Emergency (ER) | payer MEDICAID, SELFPAY ==
--- NOTE | ~2023-09-19 | XR_ITS ---
XR hip LT 2V w AP pelvis 09/19/2023 12:37 Indication: Left hip pain Procedure: AP pelvis and 2 views left hip Comparison: No prior studies for comparison. Findings: Pelvic rings are intact. No fracture, subluxation or dislocation. No soft tissue abnormalit y. No foreign bodies. Impression: 1: No acute fracture. Reviewed, dictated and finalized at location B. Impression: 1: No acute fracture.
[2023-09-19 10:44] VITALS: BP 125/75; PULSE 58; RESP 16; TEMP 36.6; O2SAT 99
--- NOTE | 2023-09-19 12:15 | ED.FALL ---
HPI - Fall General Chief Complaint: Fall Stated Complaint: fall Time Seen by Provider: 09/19/23 11:17 History of Present Illness HPI Narrative: 43-year-old female presented emergency department for evaluation for left hip pain. Patient reports she had a ground level fall while walking on gravel landed on her left hip. Patient denies any loss of bowel or bladder control. Patient denies any saddle anesthesia. Patient initially presented to [place] urgent [facility] and patient reported that she was having some intermittent numbness of her left buttock and this was interpreted as saddle anesthesia by the physician. Related Data Allergies Allergy/AdvReac Type Severity Reaction Status Date / Time No Known Allergies Allergy Verified 05/19/22 08:54 Review of Systems Review of Systems: All systems reviewed & are unremarkable except as noted in HPI and below PMFSH Past Medical History Medical History Anxiety and depression Kidney stones Ruptured tubal of right fallopian tube Surgical History Surgical History H/O tubal ligation Hx of cholecystectomy Family History Family History (Updated 08/31/21 @ 12:18 by Hillary Mohan NP) Mother Hypertension Father Patient's father is in good health Grandparent Acute myocardial infarction Cerebrovascular accident Cancer Social History Social History (Updated 08/31/21 @ 12:16 by Hillary Mohan NP) Smoking status: Former smoker Additional smoking assessment comments: states that she has quit smoking cigarettes Alcohol intake: former Substance use: current Substance use type: marijuana Living arrangements: with family Gender identity (if verbalized by the patient): Female Exam Narrative: APPEARANCE: Well appearing, no pain, no distress, well-nourished. HEAD: normocephalic, atraumatic. EYES: PERRLA/EOMI, conjunctivae clear. NOSE: Normal no drainage EARS:TMS clear with good light reflex. THROAT: Pharynx clear, no exudate. NECK: Supple. No adenopathy, no masses. RESPIRATORY: Airway patent, respirations nonlabored. Clear to auscultation bilaterally, no rales, rhonchi, wheezing. CARDIOVASCULAR: Regular rate and rhythm without murmurs rubs or gallops. ABDOMINAL: Soft, nontender, nondistended, normal bowel sounds MUSCULOSKELETAL: Left buttock tenderness to palpation no midline lumbar tenderness to palpation. NEURO: Alert. Cranial nerves II through XII intact. SKIN: Warm, dry. Normal Color Course Vital Signs Vital signs: Vital Signs Temperature 98 F 09/19/23 10:44 Pulse Rate 58 L 09/19/23 10:44 Respiratory Rate 16 09/19/23 10:44 Blood Pressure 125/75 09/19/23 10:44 Pulse Oximetry 99 09/19/23 10:44 Temperature 98.4 F 09/19/23 14:09 Pulse Rate 55 L 09/19/23 14:09 Respiratory Rate 20 09/19/23 14:09 Blood Pressure 169/88 H 09/19/23 14:09 Pulse Oximetry 100 09/19/23 14:09 MDM - Fall MDM Narrative Medical decision making narrative: 43-year-old female presents emergency department for evaluation of left hip pain consistent with sciatica after ground level fall. Patient denies any change in bowel bladder habits and patient denies any saddle anesthesia. Patient has strong rectal tone on digital rectal exam. Patient had no midline back tenderness to palpation. Patient did have tenderness to the left buttock. Patient was neurovascularly intact on neuro exam. Hip x-ray shows no fracture dislocation. Patient will be started on a Medrol Dosepak along with Flexeril and will be provided additional medications for pain control. Patient was encouraged of close follow-up with her primary care physician. All questions concerns were addressed patient was comfortable the plan for discharge and close follow-up Differential Diagnosis Differential diagnosis: Likely other Discharge Plan Discha
[2023-09-19] MEDS: CYCLOBENZAPRINE HCL 10 MG TABLET PO (12:23)
[2023-09-19] MEDS: HYDROcodone/acetaminophen (*CRX) 10-325 MG TABLET 1 TAB PO (12:23)
--- NOTE | 2023-09-19 13:12 | PC.NURSE ---
Pt reports nausea. MD made aware. VORB for 4mg zofran ODT stat.
[2023-09-19] MEDS: ONDANSETRON HCL ODT 4 MG TABLET (13:20)
--- NOTE | 2023-09-19 13:38 | PC.NURSE ---
This RN entered patient room to provide d/c instructions and found patient on the ground without gown on, dry heaving, sweating. Pt reported throwing up the ODT zofran. made aware. Another 4mg ODT zofran given to patient. Cool wash cloths provided to patient for comfort.
[2023-09-19] MEDS: ONDANSETRON HCL ODT 4 MG TABLET PO (13:40)
--- NOTE | 2023-09-19 13:55 | PC.NURSE ---
Pt reports feeling a little better, still laying on floor with cool rags. Pt is dressed in regular clothes, requests to wait a little longer to make sure she doesn't have another episode of emesis.
[2023-09-19 14:09] VITALS: BP 169/88; PULSE 55; RESP 20; TEMP 36.9; O2SAT 100
--- NOTE | 2023-09-19 14:17 | PC.NURSE ---
Patient stated feeling better and ready to go home
== END 2023-09-19 14:19 | disposition home or self-care (01) ==
PROVIDERS: Emergency Provider Emergency Medicine; PCP Physician Assistant
DX: M54.32 Sciatica, left side (principal); Z87.442 Personal history of urinary calculi; Z87.891 Personal history of nicotine dependence; Z90.49 Acquired absence of other specified parts of digestive tract; W18.39XA Other fall on same level, initial encounter
CPT/HCPCS: 73502; 99283; A9270

== ENCOUNTER 2024-05-14 08:05 | Emergency (ER) | payer MEDICAID, SELFPAY ==
[2024-05-14 08:11] VITALS: BP 127/81; PULSE 64; RESP 17; TEMP 36.6; O2SAT 100
[2024-05-14] MEDS: diazePAM INJ (*CRX) 10 MG/2 ML SYRINGE 5 MG IM (08:50)
[2024-05-14] MEDS: predniSONE 20 MG TABLET 40 MG PO (08:51)
[2024-05-14] MEDS: KETOROLAC 30 MG/ML VIAL (*BKC) IM (08:51)
[2024-05-14 08:58] VITALS: BP 133/85; PULSE 68; RESP 14; O2SAT 100
--- NOTE | 2024-05-14 16:06 | ED_ITS ---
HPI - Back Pain/Injury General Chief Complaint: Back Pain/Injury Stated Complaint: back pain X1 week Time Seen by Provider: 05/14/24 08:13 History of Present Illness HPI Narrative: Patient with history of back pain presents with 1 week of left sided back pain worse when she is in certain positions. Related Data Allergies Allergy/AdvReac Type Severity Reaction Status Date / Time No Known Allergies Allergy Verified 05/14/24 08:18 Review of Systems Review of Systems: All systems reviewed & are unremarkable except as noted in HPI and below PMFSH Past Medical History Medical History Anxiety and depression Kidney stones Ruptured tubal of right fallopian tube Surgical History Surgical History H/O tubal ligation Hx of cholecystectomy Family History Family History (Updated 08/31/21 @ 12:18 by Hillary Mohan NP) Mother Hypertension Father Patient's father is in good health Grandparent Acute myocardial infarction Cerebrovascular accident Cancer Social History Social History (Updated 08/31/21 @ 12:16 by Hillary Mohan NP) Smoking status: Former smoker Additional smoking assessment comments: states that she has quit smoking cigarettes Alcohol intake: former Substance use: current Substance use type: marijuana Living arrangements: with family Gender identity (if verbalized by the patient): Female Exam Narrative: EXAMINATION OF ORGAN SYSTEMS/BODY AREAS: Constitutional: Vital signs per nursing GENERAL: appears slightly uncomfortable HEAD: Normal with no signs of head trauma. EYES: EOMI, conjunctiva normal ENT: Hearing grossly intact LUNGS: Nonlabored breathing. HEART: [Regular rate and rhythm], normal perfusion ABD: [Soft], [nontender to palpation] EXT: Normal range of motion; no midline tenderness SKIN: [No rashes or lesions.] NEURO: [Alert and oriented x 3. No gross focal sensory or strength deficits.] PSYCH: Normal affect Course Vital Signs Vital signs: Vital Signs Temperature 97.8 F 05/14/24 08:11 Pulse Rate 64 05/14/24 08:11 Respiratory Rate 17 05/14/24 08:11 Blood Pressure 127/81 05/14/24 08:11 Pulse Oximetry 100 05/14/24 08:11 Oxygen Delivery Room Air 12/12/24 08:11 Temperature 97.8 F 05/14/24 08:11 Pulse Rate 68 05/14/24 08:58 Respiratory Rate 14 05/14/24 08:58 Blood Pressure 133/85 05/14/24 08:58 Pulse Oximetry 100 05/14/24 08:58 Oxygen Delivery Room Air 05/14/24 08:11 MDM - Back Pain/Injury MDM Narrative Medical decision making narrative: ED COURSE AND MEDICAL DECISION MAKINF with acute back pain. Normal motor and sensory exam. Patient able to ambulate. No evidence of acute cord compression, osteomyelitis/discitis or cauda equina without saddle anesthesia, urinary retention/incontinence, numbness/tingling in lower extremities, fever, history of IV drug use, cancer or immunosuppression. Doubt AAA or aortic dissection without severe pain/discomfort or any neurovascular deficits. [Ketorolac 30mg IM and diazepam 5mg IM] given for symptomatic relief. At this time, I do not believe the patient requires imaging studies. Will reevaluate the need for further investigations after the medications. On reevaluation, the symptoms are improved. Patient is able to rest more comfortably. Ambulating without difficulty. [I discussed management of acute back pain in detail, explaining the need to remain active and the goals of pain control. Will trial steroids. Patient is given return precautions and instructed to come back at any point in time for worsening pain, fevers, weakness, difficulty walking, urinary or fecal incontinence. Patient expressed understanding of instructions. Discharge Plan Discharge Clinical Impression: Lower back pain Patient Disposition: Home, Self-Care Condition: Stable Instructions: Acute Low Back Pain (ED) Additional Instructions: Please follow up with your doctor; you can always return for any further issues, especially if the pain worsens, if you notice any new fever, weakness or numbness or tingling, or inability to walk. Patient Language: Yakut Prescriptions: New prednisone 20 mg tablet 40 mg PO DAILY 5 Days Qty: 10 0RF hydrocodone-acetaminophen 5-300 mg tablet 1 tablet PO Q8H PRN (Reason: pain) Qty: 7 0RF No Action methylprednisolone [Medrol (Anatoly)] 4 mg tablets,dose pack See Rx Instructions .ROUTE .COMPLEX Qty: 21 0RF Rx Instructions: for 6 days cyclobenzaprine 10 mg tablet 10 mg PO BID PRN (Reason: muscle spasm) Qty: 14 0RF hydrocodone-acetaminophen 5-325 mg tablet 1 tablet PO Q12H PRN (Reason: pain) Qty: 14 0RF Follow-up/Referrals: Izabella,MARYANA Montiel [Primary Care Provider] - 2 Days Stand Alone Forms: Work/School Release IP
== END 2024-05-14 09:00 | disposition home or self-care (01) ==
PROVIDERS: Emergency Provider Emergency Medicine; PCP Physician Assistant
DX: M54.50 Low back pain, unspecified (principal); F41.8 Other specified anxiety disorders; Z87.891 Personal history of nicotine dependence
CPT/HCPCS: 96372; 99284; J1885; J3360; J7512